=== PATIENT | female | born 1970 | race African-American/Black ===

== ENCOUNTER 2022-08-28 09:30 | Emergency (ER) | payer OTHER ==
[2022-08-28 09:36] VITALS: BP 143/60; PULSE 88; RESP 16; TEMP 98.1; BMI 35.7
[2022-08-28] MEDS ORDERED: ACETAMINOPHEN 325 MG TABLET (FP) PO ONE (11:25)
[2022-08-28] MEDS ORDERED: KETOROLAC TROMETHAMINE 30 MG/1 ML VIAL IM ONE (11:25)
[2022-08-28] MEDS ORDERED: ACETAMINOPHEN 500 MG TABLET (FP) ONE (11:49)
[2022-08-28] MEDS ORDERED: KETOROLAC TROMETHAMINE 30 MG/1 ML VIAL ONE (11:49)
== END 2022-08-28 13:08 | disposition home or self-care (01) ==
LOC: JERFT 09:30
PROC: 3E0233Z Introduction of Anti-inflammatory into Muscle, Percutaneous Approach (ICD-10-PCS; principal; 2022-08-28)
DX: M25.561 Pain in right knee (principal)
CPT/HCPCS: 73562-TC-RT-FY; 93971-TC; 99284-25

== ENCOUNTER 2023-04-01 19:02 | Emergency (ER) | payer OTHER ==
[2023-04-01 19:16] VITALS: BP 160/78; PULSE 66; RESP 18; TEMP 98.3; BMI 35.6
[2023-04-01 22:23] LABS: BASO % 0.5 % (0-2.0); EOS % 1.8 % (0-4.5); HEMATOCRIT 35.9 % (32.4-45.2); HEMOGLOBIN 11.1 GM/dL (10.7-15.3); LYMPH % 19.8 % (8-40); MCHC 30.9 g/dl (32.0-36.0); MEAN CELL VOLUME 61.9 fl (80-96); MEAN PLT VOLUME 8.3 fl (7.5-11.1); MONO % 3.7 % (3.8-10.2); NEUT % 74.2 % (42.8-82.8); PLATELET COUNT 372 10^3/uL (134-434); RBC 5.81 M/mm3 (3.60-5.2); RDW 16.8 % (11.6-15.6); WHITE BLOOD COUNT 8.8 K/mm3 (4.0-10.0)
[2023-04-01 22:27] LABS: MCH 19.1 pg (25.7-33.7)
[2023-04-01 22:35] LABS: INR 1.06 (0.83-1.09); PROTHROMBIN TIME (PATIENT) 12.3 SEC (9.7-13.0)
[2023-04-01 22:43] LABS: POTASSIUM 4.2 mmol/L (3.5-5.1)
[2023-04-01 22:45] LABS: BLOOD UREA NITROGEN 16.6 mg/dL (7-18); CALCIUM 9.7 mg/dL (8.5-10.1)
[2023-04-01 22:46] LABS: ALBUMIN 3.9 g/dl (3.4-5.0)
[2023-04-01 22:49] LABS: CREATININE 0.9 mg/dL (0.55-1.3)
[2023-04-01 22:50] LABS: BILIRUBIN,TOTAL 0.5 mg/dL (0.2-1); TOT PROT 8.2 g/dl (6.4-8.2)
[2023-04-01 23:16] LABS: ANISOCYTOSIS 2+; MACROCYTOSIS 0
== END 2023-04-01 23:12 | disposition home or self-care (01) ==
LOC: JER 19:02
DX: N93.9 Abnormal uterine and vaginal bleeding, unspecified (principal)
CPT/HCPCS: 36415; 80053; 85025; 85610; 86850; 86900; 86901; 99283-25